=== PATIENT | female | born 1960 | race African-American/Black ===

== ENCOUNTER 2019-04-02 17:55 | Inpatient (IN) | payer OTHER ==
[~2019-04-02] VITALS: Ht 139.7 cm; Wt 95.8 kg
[2019-04-02] MEDS ORDERED: ONDANSETRON HCL 4MG/2ML INJ IV STA (19:44)
[2019-04-02] MEDS ORDERED: SODIUM CHLORIDE 0.9% 1,000 ML IV ONE (19:44)
[2019-04-02 21:50] LABS: BASOPHILS % 0.6 % (0.0-2.0); EOSINOPHILS % 0.2 % (0.0-5.0); HEMOGLOBIN. 13.4 g/dL (12.0-16.0); LYMPHOCYTES % 32.4 % (20.0-50.0); MEAN CORPUSCULAR HEMOGLOBIN 30.4 pg (28.0-32.0); MEAN PLATELET VOLUME 7.5 fl (7.4-10.4); MONOCYTES % 7.2 % (2.0-8.0); NEUTROPHILS % 59.6 % (40.0-76.0); PLATELET 269 x1000/uL (130-400); RED BLOOD CELL COUNT 4.42 mill/uL (4.2-5.4); RED CELL DISTRIBUTION WIDTH 13.2 % (11.6-14.6)
[2019-04-02 21:56] LABS: CHLORIDE 77 mEq/L (98-107)
[2019-04-02 21:59] LABS: INR 1.1; PROTHROMBIN TIME 11.5 sec (9.6-11.0)
[2019-04-02 22:16] LABS: CLARITY URINE CLEAR (CLEAR); COLOR URINE YELLOW (YELLOW); KETONES URINE 2+ (NEGATIVE); LEUKOCYTE ESTERASE URINE TRACE (NEGATIVE); NITRITE URINE NEGATIVE (NEGATIVE); OCCULT BLOOD URINE NEGATIVE (NEGATIVE); PH URINE 6.5 (4.5-8.0); PROTEIN URINE NEGATIVE (NEGATIVE); SPECIFIC GRAVITY URINE 1.013 (1.005-1.030); UROBILINOGEN URINE 0.2 E.U./dL (0.2-1.0)
[2019-04-02] MEDS ORDERED: SODIUM CHLORIDE 3% 500ML IV SOLN IV STA (23:09)
[2019-04-02] MEDS ORDERED: ASPIRIN 325MG EC TABLET PO ONE (23:15)
[2019-04-02] MEDS ORDERED: SODIUM CHLORIDE 3% 500 ML IV NR (23:30)
[2019-04-03] VITALS (11 sets, daily range): BP systolic 95–127; BP diastolic 51–81
[2019-04-03] MEDS ORDERED: CEFTRIAXONE 1 G PREMIX 50 ML IV ONE (01:00)
[2019-04-03] MEDS ORDERED: POTASSIUM CHLORIDE 20MEQ TABLET SR PO ONE (02:30)
[2019-04-03] MEDS ORDERED: DEXTROSE 50% WATER 50ML SYRINGE IV PRN (04:15)
[2019-04-03] MEDS: INSULIN LISPRO 100 UNITS/ML SUBCUT SCH ×4 (06:00→21:00)
[2019-04-03] MEDS: BLOOD SUGAR DIAGNOSTIC STRIP TEST SCH ×4 (06:00→21:17)
[2019-04-03] MEDS ORDERED: BLOOD SUGAR DIAGNOSTIC STRIP TEST SCH (06:50)
[2019-04-03] MEDS ORDERED: ASPI-1158 PO (06:59)
[2019-04-03] MEDS ORDERED: LIPITOR 40 MG (06:59)
[2019-04-03] MEDS ORDERED: AMLO10TA80 PO (06:59)
[2019-04-03] MEDS ORDERED: SODIUM CHLORIDE 0.9% 1,000 ML IV SCH (07:45)
[2019-04-03] MEDS ORDERED: PNEUMOCOCCAL 23-VAL P-SAC VAC 0.5 ML IM ONE (08:00)
[2019-04-03] MEDS: AMLODIPINE 5MG TABLET PO SCH (08:37)
[2019-04-03] MEDS: ASPIRIN 81MG TABLET PO SCH (08:37)
[2019-04-03 10:32] LABS: BASOPHILS % 0.4 % (0.0-2.0); EOSINOPHILS % 0.1 % (0.0-5.0); HEMATOCRIT. 40.2 % (36.0-48.0); HEMOGLOBIN. 13.7 g/dL (12.0-16.0); LYMPHOCYTES % 46.4 % (20.0-50.0); MEAN CORPUSCULAR HEMOGLOBIN 30.1 pg (28.0-32.0); MEAN CORPUSCULAR VOLUME 88.3 fL (81.0-99.0); MEAN PLATELET VOLUME 7.9 fl (7.4-10.4); MONOCYTES % 10.2 % (2.0-8.0); NEUTROPHILS % 42.9 % (40.0-76.0); PLATELET 266 x1000/uL (130-400); RED BLOOD CELL COUNT 4.55 mill/uL (4.2-5.4); RED CELL DISTRIBUTION WIDTH 12.8 % (11.6-14.6)
[2019-04-03 10:38] LABS: CHLORIDE 95 mEq/L (98-107)
[2019-04-03 10:46] LABS: HDL CHOLESTEROL 49 mg/dL (40-59)
[2019-04-03 10:48] LABS: LDL CHOLESTEROL 58 mg/dL (5-100)
[2019-04-03] MEDS ORDERED: POTASSIUM CHLORIDE 20MEQ TABLET SR PO NR (11:15)
[2019-04-03] MEDS: DEXTROSE 5% WATER 1,000 ML IV SCH (11:38)
[2019-04-03] MEDS: ATORVASTATIN CALCIUM 40MG TABLET PO SCH (21:22)
[2019-04-04] VITALS (13 sets, daily range): BP systolic 95–144; BP diastolic 46–78
[2019-04-04 06:06] LABS: BASOPHILS % 0.8 % (0.0-2.0); EOSINOPHILS % 0.8 % (0.0-5.0); HEMATOCRIT. 42.6 % (36.0-48.0); HEMOGLOBIN. 14.5 g/dL (12.0-16.0); LYMPHOCYTES % 53.3 % (20.0-50.0); MEAN CORPUSCULAR HEMOGLOBIN 30.3 pg (28.0-32.0); MEAN CORPUSCULAR VOLUME 88.9 fL (81.0-99.0); MEAN PLATELET VOLUME 8.7 fl (7.4-10.4); MONOCYTES % 9.1 % (2.0-8.0); PLATELET 249 x1000/uL (130-400); RED BLOOD CELL COUNT 4.79 mill/uL (4.2-5.4); RED CELL DISTRIBUTION WIDTH 13.2 % (11.6-14.6)
[2019-04-04 06:11] LABS: CHLORIDE 96 mEq/L (98-107)
[2019-04-04] MEDS: INSULIN LISPRO 100 UNITS/ML SUBCUT SCH ×4 (06:23→21:00)
[2019-04-04] MEDS: BLOOD SUGAR DIAGNOSTIC STRIP TEST SCH ×4 (06:23→21:33)
[2019-04-04] MEDS: DEXTROSE 5% WATER 1,000 ML IV SCH (06:23)
[2019-04-04] MEDS: SODIUM CHLORIDE 0.45% 1,000 ML IV SCH ×2 (08:26→21:42)
[2019-04-04] MEDS: AMLODIPINE 5MG TABLET PO SCH (08:26)
[2019-04-04] MEDS: POTASSIUM CHLORIDE 20MEQ TABLET SR PO SCH ×2 (08:26→08:58)
[2019-04-04] MEDS: ASPIRIN 81MG TABLET PO SCH (08:26)
[2019-04-04 11:05] LABS: PHOSPHORUS 2.1 mg/dL (2.5-4.9)
[2019-04-04 17:30] LABS: *BARBITURATES SCREEN URINE NEGATIVE (NEGATIVE)
[2019-04-04 17:31] LABS: *AMPHETAMINES SCREEN URINE NEGATIVE (NEGATIVE); *BENZODIAZEPINES SCREEN URINE NEGATIVE (NEGATIVE); *COCAINE SCREEN URINE NEGATIVE (NEGATIVE); METHADONE URINE SCREEN NEGATIVE (NEGATIVE); OPIATES URINE SCREEN NEGATIVE (NEGATIVE); PHENCYCLIDINE URINE SCREEN NEGATIVE (NEGATIVE)
[2019-04-04 17:32] LABS: CANNABINOID URINE SCREEN NEGATIVE (NEGATIVE)
[2019-04-04] MEDS: ATORVASTATIN CALCIUM 40MG TABLET PO SCH (21:34)
[2019-04-05] VITALS: BP 100/55
[2019-04-05 02:00] VITALS: BP 123/70
[2019-04-05 04:00] VITALS: BP 109/66
[2019-04-05] MEDS: BLOOD SUGAR DIAGNOSTIC STRIP TEST SCH (05:52)
[2019-04-05 06:00] VITALS: BP 108/60
[2019-04-05 07:09] LABS: BASOPHILS % 0.9 % (0.0-2.0); EOSINOPHILS % 2.6 % (0.0-5.0); HEMATOCRIT. 37.4 % (36.0-48.0); HEMOGLOBIN. 12.8 g/dL (12.0-16.0); LYMPHOCYTES % 57.4 % (20.0-50.0); MEAN CORPUSCULAR HEMOGLOBIN 30.1 pg (28.0-32.0); MEAN CORPUSCULAR VOLUME 88.1 fL (81.0-99.0); MEAN PLATELET VOLUME 7.9 fl (7.4-10.4); MONOCYTES % 11.4 % (2.0-8.0); NEUTROPHILS % 27.7 % (40.0-76.0); PLATELET 252 x1000/uL (130-400); RED BLOOD CELL COUNT 4.24 mill/uL (4.2-5.4)
[2019-04-05] MEDS: INSULIN LISPRO 100 UNITS/ML SUBCUT SCH (07:20)
[2019-04-05 07:53] LABS: CHLORIDE 101 mEq/L (98-107)
[2019-04-05 08:00] VITALS: BP 130/76
[2019-04-05 08:03] LABS: PHOSPHORUS 2.3 mg/dL (2.5-4.9)
[2019-04-05] MEDS: ASPIRIN 81MG TABLET PO SCH (08:22)
[2019-04-05] MEDS: AMLODIPINE 5MG TABLET PO SCH (08:22)
[2019-04-05] MEDS: POTASSIUM CHLORIDE 20MEQ TABLET SR PO SCH (08:22)
[2019-04-05 11:11] VITALS: BP 130/76
[2019-04-06] MEDS ORDERED: LIP40 PO (00:30)
== END 2019-04-05 12:33 | disposition home or self-care (01) | DRG 74 ==
LOC: ER 17:55 → EDBD 17:55 → 3WST 04-03 00:54 → EDBEDREQDT 04-03 01:09 → EDBEDREQTM 04-03 01:09 → EDBEDREQ 04-03 01:09 → ENRESERV 04-03 01:43
PROVIDERS: ADMIT Internal Medicine; ATTEND Internal Medicine
DX: G90.8 Other disorders of autonomic nervous system (principal); E87.1 Hypo-osmolality and hyponatremia; Z68.42 Body mass index [BMI] 45.0-49.9, adult; I10 Essential (primary) hypertension; E11.9 Type 2 diabetes mellitus without complications; E66.9 Obesity, unspecified; Z71.3 Dietary counseling and surveillance; E78.5 Hyperlipidemia, unspecified; E87.6 Hypokalemia; J44.9 Chronic obstructive pulmonary disease, unspecified
CPT/HCPCS: 36415; 71045; 80048; 80061; 80305; 82533; 82962; 83036; 83735; 83880; 83930; 83935; 84100; 84133; 84295; 84443; 84484; 93005; 93306; 93970; 96361; 96365; 96375; 97116; 97162; 99291; J0696; J2405; J7030; J7070

== ENCOUNTER 2019-04-05 16:45 | Inpatient (IN) | payer OTHER ==
[~2019-04-05] VITALS: Ht 160 cm; Wt 90.7 kg
[~2019-04-05 16:45] MED LIST: AMLO10TA80 PO; ASPI-1158 PO; LIPITOR 40 MG
[2019-04-05 18:15] LABS: BASOPHILS % 1.5 % (0.0-2.0); EOSINOPHILS % 1.8 % (0.0-5.0); HEMATOCRIT. 36.7 % (36.0-48.0); HEMOGLOBIN. 12.6 g/dL (12.0-16.0); MEAN CORPUSCULAR HEMOGLOBIN 30.4 pg (28.0-32.0); MEAN CORPUSCULAR VOLUME 88.6 fL (81.0-99.0); MEAN PLATELET VOLUME 7.7 fl (7.4-10.4); MONOCYTES % 11.5 % (2.0-8.0); NEUTROPHILS % 38.2 % (40.0-76.0); PLATELET 257 x1000/uL (130-400); RED BLOOD CELL COUNT 4.14 mill/uL (4.2-5.4); RED CELL DISTRIBUTION WIDTH 13.5 % (11.6-14.6)
[2019-04-05 18:17] LABS: CHLORIDE 100 mEq/L (98-107)
[2019-04-05 18:20] LABS: PARTIAL THROMBOPLASTIN TIME 23.6 sec (23.4-31.0); PROTHROMBIN TIME 10.7 sec (9.6-11.0)
[2019-04-05] MEDS ORDERED: ASPIRIN 325MG EC TABLET PO ONE (19:45)
[2019-04-05] MEDS ORDERED: IPRATROPIUM/ALBUTEROL 0.5-3(2.5)MG/3ML NEB INH PRN (20:00)
[2019-04-05] MEDS ORDERED: CLONIDINE 0.1MG TABLET PO PRN (20:00)
[2019-04-05] MEDS ORDERED: NITROGLYCERIN 0.4MG TABLET SL SL PRN (20:00)
[2019-04-05] MEDS ORDERED: NA PHOS,M-B/NA PHOS,DI-BA ENEMA 118ML PR PRN (20:00)
[2019-04-05] MEDS ORDERED: ACETAMINOPHEN 325MG TABLET PO PRN (20:00)
[2019-04-05] MEDS ORDERED: GUAIFENESIN 200MG/10ML SUGAR FREE UDC PO PRN (20:00)
[2019-04-05] MEDS ORDERED: ONDANSETRON HCL 4MG/2ML INJ IV PRN (20:00)
[2019-04-05] MEDS ORDERED: KETOROLAC 15MG/ML VIAL IV PRN (20:00)
[2019-04-05] MEDS ORDERED: MAGNESIUM/ALUMINUM HYDROXIDE/SIMETHICONE 30ML UDC PO PRN (20:00)
[2019-04-05] MEDS ORDERED: DOCUSATE SODIUM 100MG CAPSULE PO PRN (20:00)
[2019-04-05 20:49] LABS: T4 FREE 1.34 ng/dL (0.76-1.46)
[2019-04-05] MEDS ORDERED: LEVOFLOXACIN 500MG PREMIX 100 ML IV NR (21:09)
[2019-04-05] MEDS ORDERED: ENOXAPARIN 40MG/0.4ML SYR SUBCUT NR (21:11)
[2019-04-05] MEDS ORDERED: FAMOTIDINE 20MG TABLET PO NR (21:15)
[2019-04-05] MEDS ORDERED: ASCORBIC ACID 500 MG TABLET PO SCH (21:15)
[2019-04-05] MEDS: SODIUM CHLORIDE 0.9% 1,000 ML IV SCH (21:42)
[2019-04-05 21:57] LABS: FOLIC ACID (FOLATE) SERUM 5.3 ng/mL (>5.38)
[2019-04-06] VITALS: BP 145/58
[2019-04-06] MEDS ORDERED: LIP40 PO (00:30)
[2019-04-06 01:00] VITALS: BP 129/84
[2019-04-06] MEDS ORDERED: KCL 10MEQ/50ML PREMIX 50 ML IV SCH (01:00)
[2019-04-06] MEDS ORDERED: CEFTRIAXONE 1 G PREMIX 50 ML IV SCH (01:00)
[2019-04-06 04:00] VITALS: BP 141/65
[2019-04-06 07:51] LABS: CLARITY URINE CLEAR (CLEAR); COLOR URINE YELLOW (YELLOW); KETONES URINE 1+ (NEGATIVE); LEUKOCYTE ESTERASE URINE 1+ (NEGATIVE); NITRITE URINE NEGATIVE (NEGATIVE); OCCULT BLOOD URINE NEGATIVE (NEGATIVE); PROTEIN URINE NEGATIVE (NEGATIVE); SPECIFIC GRAVITY URINE 1.011 (1.005-1.030); UROBILINOGEN URINE 0.2 E.U./dL (0.2-1.0)
[2019-04-06 08:00] VITALS: BP 139/73
[2019-04-06 08:03] LABS: *AMPHETAMINES SCREEN URINE NEGATIVE (NEGATIVE); *BARBITURATES SCREEN URINE NEGATIVE (NEGATIVE); *BENZODIAZEPINES SCREEN URINE NEGATIVE (NEGATIVE); *COCAINE SCREEN URINE NEGATIVE (NEGATIVE)
[2019-04-06 08:04] LABS: CANNABINOID URINE SCREEN NEGATIVE (NEGATIVE); METHADONE URINE SCREEN NEGATIVE (NEGATIVE); OPIATES URINE SCREEN PRESUMTIVE POSITIVE (NEGATIVE); PHENCYCLIDINE URINE SCREEN NEGATIVE (NEGATIVE)
[2019-04-06] MEDS: SODIUM CHLORIDE 0.9% 1,000 ML IV SCH (08:44)
[2019-04-06] MEDS ORDERED: ASPIRIN 325MG EC TABLET PO SCH (09:00)
[2019-04-06] MEDS ORDERED: AMLODIPINE 5MG TABLET PO SCH (09:00)
[2019-04-06] MEDS ORDERED: ENOXAPARIN 40MG/0.4ML SYR SUBCUT SCH (09:00)
[2019-04-06] MEDS ORDERED: FAMOTIDINE 20MG TABLET PO SCH (09:00)
[2019-04-06] MEDS ORDERED: FOLIC ACID 1MG TABLET PO SCH (09:00)
[2019-04-06] MEDS ORDERED: ZINC SULFATE 220 MG ( 50 ) CAPSULE PO SCH (09:00)
[2019-04-06] MEDS ORDERED: ASCORBIC ACID 500 MG TABLET PO SCH (09:00)
[2019-04-06 10:23] VITALS: BP 139/73
[2019-04-06 12:00] VITALS: BP 124/62
[2019-04-06 12:26] LABS: BASOPHILS % 0.9 % (0.0-2.0); EOSINOPHILS % 2.1 % (0.0-5.0); HEMATOCRIT. 33.7 % (36.0-48.0); HEMOGLOBIN. 11.4 g/dL (12.0-16.0); LYMPHOCYTES % 45.1 % (20.0-50.0); MEAN CORPUSCULAR HEMOGLOBIN 30.2 pg (28.0-32.0); MEAN CORPUSCULAR VOLUME 89.2 fL (81.0-99.0); MEAN PLATELET VOLUME 7.6 fl (7.4-10.4); MONOCYTES % 11.7 % (2.0-8.0); NEUTROPHILS % 40.2 % (40.0-76.0); PLATELET 244 x1000/uL (130-400); RED BLOOD CELL COUNT 3.78 mill/uL (4.2-5.4); RED CELL DISTRIBUTION WIDTH 13.6 % (11.6-14.6)
[2019-04-06 12:53] LABS: CHLORIDE 103 mEq/L (98-107)
[2019-04-06] MEDS ORDERED: LEVOFLOXACIN 500MG PREMIX 100 ML IV SCH (22:00)
== END 2019-04-06 13:05 | disposition home or self-care (01) | DRG 92 ==
LOC: ER 16:47 → 7WST 19:45 → EDBEDREQ 19:53 → EDBEDREQTM 19:53 → ENRESERV 21:17
PROVIDERS: ADMIT Internal Medicine; ATTEND Internal Medicine
DX: G92 Toxic encephalopathy (principal); E87.1 Hypo-osmolality and hyponatremia; N39.0 Urinary tract infection, site not specified; D52.9 Folate deficiency anemia, unspecified; E11.9 Type 2 diabetes mellitus without complications; E78.00 Pure hypercholesterolemia, unspecified; E87.6 Hypokalemia; I10 Essential (primary) hypertension; Z79.4 Long term (current) use of insulin
CPT/HCPCS: 36415; 71045; 80048; 80061; 80305; 80320; 82607; 82746; 82962; 83036; 83540; 83550; 83735; 83880; 84439; 84443; 84484; 93005; 99285; C1893; J0696; J1650; J1956; J3480; G0480